=== PATIENT | male | born 1995 | race Two or more races ===

== ENCOUNTER 2019-01-08 07:33 | Emergency (ER) | payer OTHER ==
[2019-01-08] MEDS ORDERED: HALOPERIDOL 5 MG/ML VIAL IM STA (07:42)
[2019-01-08] MEDS ORDERED: diphenhydrAMINE INJ 50 MG/ML VIAL IM STA (07:43)
--- NOTE | 2019-01-08 07:51 | ED Physician Documentation ---
PD HPI MHE - Stated complaint Stated Complaint: MHE - History obtained from History obtained from: EMS - History of Present Illness Primary symptom: Psychosis Timing - onset: Last night Severity Comments: severe Contributing factors: Substance abuse - ETOH, Other (possibly other drugs) Similar symptoms before: Has not had sx before Recently seen: Not recently seen - Treatment prior to arrival Treatment prior to arrival: none - Additional information Additional information[place] suddenly started acting bizarrely screaming and hitting things. He has no known prior hx. Review of Systems Unable to obtain: AMS PD PAST MEDICAL HISTORY - Past Medical History Past Medical History: Yes - Present Medications Home Medications: Ambulatory Orders Medication Instructions Recorded Confirmed Multivitamin [Multivitamins] 01/08/19 - Allergies Allergies/Adverse Reactions: Allergies Allergy/AdvReac Type Severity Reaction Status Date / Time No Known Drug Allergies Allergy Verified 01/08/19 07:53 PD ED PE NORMAL - Vitals Vital signs reviewed: Yes - HEENT HEENT: Atraumatic, PERRL - Neck Neck: Supple, no meningeal sign, No JVD - Cardiac Cardiac: RRR - Respiratory Respiratory: No respiratory distress - Abdomen Abdomen: Soft, Non tender, Non distended - Male Male : Deferred - Rectal Rectal: Deferred - Derm Derm: Normal color, Warm and dry - Extremities Extremities: No deformity, No edema - Neuro Neuro: No motor deficit Eye Opening: Spontaneous Motor: Localizes to Pain Verbal: Confused GCS Score: 13 - Psych Psych: Other (screaming, throwing extremities around ) Results - Vitals Vitals: Vital Signs - 24 hr 01/08/19 01/08/19 01/08/19 07:43 08:05 09:31 Temperature 36.9 C Heart Rate 101 H 95 72 Respiratory 18 18 18 Rate Blood Pressure 115/88 H 124/61 114/55 L O2 Saturation 100 100 100 01/08/19 01/08/19 11:58 13:08 Temperature 36.6 C Heart Rate 92 110 H Respiratory 18 16 Rate Blood Pressure 121/69 106/52 L O2 Saturation 100 100 Oxygen O2 Source Room air - Labs Labs: Laboratory Tests 01/08/19 01/08/19 01/08/19 08:10 08:10 11:46 WBC 7.8 RBC 5.06 Hgb 13.7 L Hct 41.0 L MCV 81.0 MCH 27.1 MCHC 33.4 RDW 12.9 Plt Count 336 MPV 8.7 Neut # (Auto) 6.1 Lymph # (Auto) 1.1 L [place] # (Auto) 0.5 Eos # (Auto) 0.0 Baso # (Auto) 0.0 Absolute Nucleated RBC 0.00 Nucleated RBC % 0.0 Sodium 145 Potassium 3.2 L Chloride 112 H Carbon Dioxide 20 L Anion Gap 13.0 BUN 11 Creatinine 0.7 Estimated GFR (MDRD) 140 Glucose 109 H Calcium 8.6 Total Bilirubin 0.6 AST 35 ALT 46 Alkaline Phosphatase 71 Total Protein 8.1 Albumin 4.7 Globulin 3.4 Albumin/Globulin Ratio 1.4 Lipase 32 Salicylates < 6.0 Urine Opiates Screen NEGATIVE Ur Oxycodone Screen NEGATIVE Urine Methadone Screen NEGATIVE Ur Propoxyphene Screen NEGATIVE Acetaminophen < 10 L Ur Barbiturates Screen NEGATIVE Ur Tricyclics Screen NEGATIVE Ur Phencyclidine Scrn NEGATIVE Ur Amphetamine Screen NEGATIVE U Methamphetamines Scrn NEGATIVE U Benzodiazepines Scrn NEGATIVE Urine Cocaine Screen NEGATIVE U Cannabinoids Screen NEGATIVE Ethyl Alcohol 201.4 PD MEDICAL DECISION MAKING - ED course Complexity details: reviewed results, re-evaluated patient, considered differential, d/w patient ED course: ddx- polysubstance abuse, alcohol intoxication, psychosis, intracranial abnormality 23 y/o M was intoxicated and then suddenly became very agitated and was screaming repeatedly. 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 In the ED he was given haldol and benadryl but was persistently very agitated thus given Ketamine and put in soft restraints. He was less agitated and eventually restraints were removed. He was conversive admitted to drinking heavily, denied any other drug use. His toxicology eval was negative. He is stable for discharge and will get a ride home from his coworker. Departure - Departure Disposition: 01 Home, Self Care Clinical Impression: Acute alcohol intoxication Condition: Stable Instructions: ED Alcohol Intoxication Follow-Up: your, doctor [Other] - As Needed Comments: You were evaluated in the ED today for agitation and altered mental status. Your labs and urine sample here were normal. This appears to have been due to severe alcohol intoxication. Your alcohol level was very elevated (200). You are stable to return to your home. Discharge Date/Time: 01/08/19 13:09
[2019-01-08] MEDS ORDERED: KETAMINE 500 MG/10 ML VIAL IM STA (07:52)
[2019-01-08 08:19] LABS: BASOPHILS % (AUTO) 0.5 %; HGB - HEMOGLOBIN 13.7 g/dL (14.0-18.0); LYMPHOCYTES # (AUTO) 1.1 10^3/uL (1.5-3.5); LYMPHOCYTES % (AUTO) 14.7 %; MEAN CORPUSCULAR HEMOGLOBIN 27.1 pg (27.0-31.0); MEAN CORPUSCULAR HGB CONC 33.4 g/dL (32.0-36.0); MEAN PLATELET VOLUME 8.7 fL (7.4-11.4); MONOCYTES # (AUTO) 0.5 10^3/uL (0.0-1.0); MONOCYTES % (AUTO) 6.1 %; NEUTROPHILS # (AUTO) 6.1 10^3/uL (1.5-6.6); NEUTROPHILS % (AUTO) 78.2 %; PLT - PLATELET COUNT 336 10^3/uL (130-450); RED BLOOD COUNT 5.06 10^6/uL (4.70-6.10); RED CELL DISTRIBUTION WIDTH 12.9 % (12.0-15.0); WHITE BLOOD COUNT 7.8 x10^3/uL (4.8-10.8)
[2019-01-08 08:36] LABS: ACETAMINOPHEN < 10 ug/mL (10-30); ALBUMIN 4.7 g/dL (3.2-5.5); ALBUMIN/GLOBULIN RATIO 1.4 (1.0-2.2); ALKALINE PHOSPHATASE 71 IU/L (42-121); ALT ALANINE AMINOTRANSFERASE 46 IU/L (10-60); AST ASPARTATE AMINOTRANSFERASE 35 IU/L (10-42); BILIRUBIN,TOTAL 0.6 mg/dL (0.2-1.0); BUN - BLOOD UREA NITROGEN 11 mg/dL (6-20); CALCIUM 8.6 mg/dL (8.5-10.3); CARBON DIOXIDE - CO2 20 mmol/L (21-32); CHLORIDE 112 mmol/L (101-111); CREATININE 0.7 mg/dL (0.6-1.2); GFR - MDRD 140 (>89); GLUCOSE 109 mg/dL (70-100); LIPASE 32 U/L (22-51); SALICYLATE < 6.0 mg/dL; SODIUM 145 mmol/L (135-145); TOTAL PROTEIN 8.1 g/dL (6.7-8.2)
[2019-01-08 12:11] LABS: AMPHETAMINE SCREEN,URINE NEGATIVE (NEGATIVE); BENZODIAZEPINES SCREEN, URINE NEGATIVE (NEGATIVE); COCAINE SCREEN URINE NEGATIVE (NEGATIVE); METHADONE SCREEN, URINE NEGATIVE (NEGATIVE); METHAMPHETAMINES SCREEN, URINE NEGATIVE (NEGATIVE); MUDS CUTOFF CONCENTRATIONS CUTOFF CONC BELOW:; OPIATE SCREEN, URINE NEGATIVE (NEGATIVE); OXYCODONE SCREEN, URINE NEGATIVE (NEGATIVE); PROPOXYPHENE SCREEN, URINE NEGATIVE (NEGATIVE); TRICYCLIC ANTIDEPRESSANT,URINE NEGATIVE (NEGATIVE)
[2019-01-08 13:09] VITALS: BP 106/52
== END 2019-01-08 13:09 | disposition home or self-care (01) ==
LOC: ED 07:33
DX: F10.920 Alcohol use, unspecified with intoxication, uncomplicated (principal); Y90.7 Blood alcohol level of 200-239 mg/100 ml; R41.82 Altered mental status, unspecified; R45.1 Restlessness and agitation; Z78.1 Physical restraint status
CPT/HCPCS: 36415; 51701; 80053; 80320; 80329; 83690; 85025; 96372; 99281; 99283; J1200; 80306; 80307

== ENCOUNTER 2019-07-10 10:18 | Outpatient (CLI) | payer OTHER ==
--- NOTE | 2019-07-11 02:03 | MRI Report ---
Reason: RT ANKLE PAIN Procedure Date: 07/10/2019 Accession Number: [id number] / [id number] Procedure: MRI - Ankle RT W/O CPT Code: Final Report FULL RESULT: EXAM: RIGHT ANKLE/HINDFOOT MRI WITHOUT CONTRAST EXAM DATE: 07/10/2019 11:26 AM. CLINICAL HISTORY: RT ANKLE PAIN. Twisted ankle while running in December 2018. Pain since then with tenderness to touch. COMPARISON: None. TECHNIQUE: Multiplanar, multisequence T1-weighted and fluid-sensitive sequences of the ankle/hindfoot without contrast. Other: Image and osmin was placed at the anterior ankle. FINDINGS: Bones: No fractures or subluxations. Focal bone marrow edema at the talar osteochondral lesion. The remaining visualized bones of the mid and hindfoot are intact. Articular Cartilage: 1.0 x 0.6 cm osteochondral lesion at the posterior lateral dome of the talus with adjacent bone marrow edema and subchondral sclerosis. The cartilage overlying this lesion is thin and discontinuous. Ligaments: The anterior and posterior tibiofibular, anterior and posterior talofibular, and calcaneofibular ligaments are intact. The deep and superficial deltoid and spring ligaments are intact. Anterior Tendons: The tibialis anterior, extensor hallucis longus, and extensor digitorum longus tendons are unremarkable. Medial Tendons: The tibialis posterior, flexor digitorum longus, and flexor hallucis longus tendons are unremarkable. Lateral Tendons: The peroneus brevis and longus are unremarkable. Achilles Tendon: The Achilles tendon is unremarkable. Musculature: No edema or fatty atrophy. Other: Small tibiotalar joint effusion. The contents of the sinus tarsi and tarsal tunnel are unremarkable. No plantar fasciitis. The subcutaneous tissues are unremarkable. IMPRESSION: 1.0 x 0.6 cm osteochondral lesion at the posterolateral dome of the talus. Small tibiotalar joint effusion. RADIA
== END 2019-07-10 10:19 | disposition home or self-care (01) ==
LOC: DI 10:18
PROVIDERS: ATTEND Registered Nurse Diabetes Educator
DX: M89.9 Disorder of bone, unspecified (principal); M25.471 Effusion, right ankle